=== PATIENT | female | born 1950 | race Caucasian/White ===

== ENCOUNTER 2024-05-08 10:13 | Outpatient (CLI) | payer MEDICARE, BC | END 2024-05-08 10:14 | disposition home or self-care (01) | LOC: BICCT 10:13 | PROVIDERS: ATTEND Physician Assistant Medical | DX: R10.30 Lower abdominal pain, unspecified (principal); R19.4 Change in bowel habit; R14.0 Abdominal distension (gaseous); K57.30 Diverticulosis of large intestine without perforation or abscess without bleeding; N28.1 Cyst of kidney, acquired | CPT/HCPCS: 74177; 82565 ==